=== PATIENT | male | born 1955 | race American Indian/Alaskan Native ===

== ENCOUNTER 2018-03-02 00:50 | Emergency (ER) | payer BC ==
[2018-03-02 01:12] VITALS: BP 147/81; PULSE 63; RESP 16; TEMP 97.7; O2SAT 99
--- NOTE | 2018-03-02 01:52 | C.PDOC ---
History Of Present Illness 62 year old male presents to the ED for evaluation of a laceration above his left eyebrow. Patient reports that while walking to the bathroom in his house he tripped and bumped his left forehead against the door sustaining a laceration. Patient denies LOC, neck pain, dizziness, weakness, numbness, visual changes, nausea, vomit. Time Seen by Provider: 03/02/18 01:21 Chief Complaint (Nursing): Abnormal Skin Integrity History Per: Patient History/Exam Limitations: no limitations Onset/Duration Of Symptoms: Hrs Current Symptoms Are (Timing): Still Present Location Of Injury: Left: Head Quality Of Symptoms: Painful Severity: None Recent travel outside of the [place]: No Additional History Per: Patient Past Medical History Reviewed: Historical Data, Nursing Documentation, Vital Signs Vital Signs: Last Vital Signs Temp 97.7 F 03/02/18 01:03 Pulse 63 03/02/18 01:03 Resp 16 03/02/18 01:03 BP 147/81 03/02/18 01:03 Pulse Ox 99 03/02/18 01:03 - Medical History PMH: Cardia Arrhythmia, HTN Surgical History: No Surg Hx Family History: States: Unknown Family Hx - Social History Hx Alcohol Use: Yes Hx Substance Use: No - Immunization History Hx Tetanus Toxoid Vaccination: Yes (2 years ago) Hx Influenza Vaccination: No Hx Pneumococcal Vaccination: No Review Of Systems Constitutional: Negative for: Fever, Chills Eyes: Negative for: Vision Change Cardiovascular: Negative for: Chest Pain Respiratory: Negative for: Shortness of Breath Gastrointestinal: Negative for: Nausea, Vomiting Skin: Positive for: Other (laceration ). Negative for: Rash Neurological: Negative for: Headache, Dizziness Physical Exam - Physical Exam Appears: Non-toxic, No Acute Distress Skin: Normal Color, Warm, Dry Head: Atraumatic, Normacephalic, Laceration (0.5 superfical stellate left eyebrow) Eye(s): bilateral: Normal Inspection, PERRL, EOMI Oral Mucosa: Moist Neck: Normal ROM, No Midline Cervical Tenderness, Supple Extremity: Normal ROM Neurological/Psych: Oriented x3, Normal Speech, Normal Cognition, Normal Motor, Normal Sensation Gait: Steady ED Course And Treatment O2 Sat by Pulse Oximetry: 99 (ON RA) Pulse Ox Interpretation: Normal Progress Note: On reassessment, patient is resting comfortably, and is in no acute distress. Patient was instructed to follow up with physician/clinic in 1-2 days for further evaluation. Laceration - Laceration Repair left eyeborw Wound Length (In cm): 0.5 Description Of Wound: Stellate Wound Cleansed With: Sterile Saline Wound Examination: Irrigated With Saline Wound Closure: Steri Strips (x3), Skin Glue Wound Complexity: Simple Disposition Counseled Patient/Family Regarding: Diagnosis, Need For Followup - Disposition Disposition: HOME/ ROUTINE Disposition Time: 01:46 Condition: STABLE Additional Instructions: Please follow up with PMD in 2 days for wound check Keep wound dry for 2 days Return to ER if severe headache, dizziness, vomiting, drowsiness, weakness, or worse Instructions: Laceration Repair With Glue (DC) Forms: iodine (Mozambican) - Clinical Impression Clinical Impression: Laceration of eyebrow, left - PA / [employer] / Resident Statement MD/DO has reviewed & agrees with the documentation as recorded. - Scribe Statement The provider has reviewed the documentation as recorded by the Scribe Kashif Dunne All medical record entries made by the Scribe were at my direction and personally dictated by me. I have reviewed the chart and agree that the record accurately reflects my personal performance of the history, physical exam, medical decision making, and the department course for this patient. I have also personally directed, reviewed, and agree with the discharge instructions and disposition.
== END 2018-03-02 02:00 | disposition home or self-care (01) ==
LOC: C.ER 00:50
DX: S01.112A Laceration without foreign body of left eyelid and periocular area, initial encounter (principal); W01.198A Fall on same level from slipping, tripping and stumbling with subsequent striking against other object, initial encounter; I10 Essential (primary) hypertension